=== PATIENT | female | born 1975 | race Caucasian/White ===

== ENCOUNTER 2023-09-16 15:10 | Outpatient (OUT) | payer BC, SELFPAY ==
--- NOTE | 2023-09-16 15:18 | MM_ITS ---
Patient Name: AMINTA STILL MR#: [id number] : 1975 Exam Date: 09/16/2023 Ordering Doctor: DR TAWNYA FLORES RADIOLOGY REPORT PROCEDURE: MM TOMOSYNTHESIS SCREENING BI COMPARISON: MG MAMM SCREEN 3D JUAN CAD, 11/29/2021. MG MAMM SCREEN 3D JUAN CAD, 06/08/2020. MG MAMM SCREEN JUAN W CAD, 07/17/2017. INDICATIONS: screening Calculator Name NCI Breast Cancer Risk Assessment Tool 5 Year Breast Cancer Risk 0.90% Lifetime Breast Cancer Risk 10.50% Personal Breast Cancer No Personal Ovarian Cancer No Treatments None Family Cancers Grandfather-paternal with colon cancer at age ~72. LOCATION: [facility] BREAST COMPOSITION: The breasts are extremely dense, which lowers the sensitivity of mammography. FINDINGS: DIAGNOSTIC CATEGORY 1--NEGATIVE. RIGHT BREAST: No significant suspicious finding. Resolution of previously seen cyst within upper outer quadrant. LEFT BREAST: No significant suspicious finding. No significant change has occurred. RECOMMENDATIONS: ROUTINE MAMMOGRAM AND CLINICAL EVALUATION IN 12 MONTHS. PLEASE NOTE: A NORMAL MAMMOGRAM DOES NOT EXCLUDE THE POSSIBILITY OF BREAST CANCER. A CLINICALLY SUSPICIOUS PALPABLE LUMP SHOULD BE BIOPSIED. Dictated by: Delfino Denton M.D. on 09/16/2023 at 16:31 Approved by: Delfino Denton M.D. on 09/16/2023 at 16:35
== END 2023-09-16 15:11 | disposition home or self-care (01) ==
LOC: MAMMO 15:12
PROVIDERS: PCP Internal Medicine; Visit Provider Internal Medicine
DX: Z12.31 Encounter for screening mammogram for malignant neoplasm of breast (principal); Z80.0 Family history of malignant neoplasm of digestive organs
CPT/HCPCS: 77063; 77067

== ENCOUNTER 2024-09-24 07:39 | Outpatient (OUT) | payer BC, SELFPAY ==
--- OUTSIDE RECORDS SUMMARY | 2024-09-24 07:41 | XMS_ITS | CCD ---
Author Organization [facility] Care Team Providers Care Stenotype Operator Name Role Phone Breanne Olivia Unavailable Unavailable Breanne Olviia Unavailable Unavailable NONE, XXXX Unavailable Unavailable HIESTAND, DR TAWNYA Gonzales Primary Care Unavailable HIESTAND, DR TAWNYA Gonzales Admitting Unavailable ZIEBER, DR DELFINO Fontana Consulting Unavailable HIESTAND, DR TAWNYA Gonzales Attending Unavailable HIESTAND, DR TAWNYA Gonzales Consulting Unavailable HIESTAND, DR TAWNYA Gonzales Primary Care Unavailable HIESTAND, DR TAWNYA Gonzales Admitting Unavailable VERNON, DR KIRA Navarro Consulting Unavailable HIESTAND, DR TAWNYA Gonzales Attending Unavailable HIESTAND, DR TAWNYA Gonzales Consulting Unavailable HIESTAND, DR TAWNYA Gonzales Primary Care Unavailable HIESTAND, DR TAWNYA Gonzales Admitting Unavailable ZIEBER, DR DELFINO Fontana Consulting Unavailable HIESTAND, DR TAWNYA Gonzales Attending Unavailable HIESTAND, DR TAWNYA Gonzales Consulting Unavailable [place] Tawnya MCKEON Primary Care Provider TAWNYA WESLEY Attending Unavailable MARK, TAWNYA Gonzales Referring Unavailable TAWNYA WESLEY Primary Care Unavailable TAWNYA WESLEY Attending Unavailable MARK, TAWNYA Gonzales Referring Unavailable TAWNYA WESLEY Primary Care Unavailable Allergies Allergy Classification Reported Allergen(s) Allergy Type Date of Onset Reaction(s) Facility (6 sources) Lisinopril; Translations: [LISINOPRIL] Drug Allergy 01-21-2022 [facility] Medications Current Medications Medication Drug Class(es) Dates Sig (Normalized) Sig (Original) losartan potassium 50 mg oral tablet (8 sources) Angiotensin 2 Receptor Melissa Start: 06-09-2024 take 1 tablet by mouth in the morning, then take 1 tablet by mouth at bedtime losartan (COZAAR) 50 mg tablet Indications: Primary hypertension Take 1 tablet (50 mg total) by mouth in the morning and 1 tablet (50 mg total) before bedtime. 06/09/2024 Active Start: 01-22-2023 End: 06-09-2024 take 1 tablet by mouth once daily in the morning losartan (COZAAR) 50 mg tablet Indications: Primary hypertension take 1 tablet by mouth once daily in the morning 90 tablet 3 02/26/2024 06/09/2024 Discontinued MULTIVITAMIN ORAL (5 sources) take 1 tablet by edith th in the morning MULTIVITAMIN ORAL Take 1 tablet by mouth in the morning. Active take 1 tablet by mouth in the mo rning MULTIVITAMIN ORAL Take 1 tablet by mouth in the morning. 0 Active Problems Active Problems Problem Classification Problem Date Documented Da te Episodic/Chronic Essential hypertension (10 sources) Essential hypertension; Translations: [Essential (primary) hypertension] Onset: 2021 06-09-2024 Chronic Nonmalignant breast conditions (5 sources) Solitary cyst of right breast; Translations: [Unspecified lump in unspecified breast] Onset: 12-11-2021 Episodic Other screening for suspected conditions (not mental disorders or infectious disease) (9 sources) Other abnormal and inconclusive findings on diagnostic imaging of breast; Translations: [Encounter for screening mammogram for malignant neoplasm of breast] Onset: 11-29-2021 Episodic Unclassified (1 source) BP's have been running high Onset: 06-09-2024 Unclassified (1 source) Annual Exam Onset: 02-10-2024 Past or Other Problems Problem Classification Problem Date Documented Da te Episodic/Chronic Mood disorders (5 sources) Mood disorders Onset: 01-22-2023 01-22-2023 Residual codes; unclassified (1 source) Family history of malignant neoplasm of digestive organs; Translations: [FAM HX MALIG NEOPLASM DIGESTIV ORGN] Onset: 12-04-2021 Episodic Results Test Name Value Interpretation Reference Range Facil ity US BREAST RIGHT LIMITEDon US BREAST RIGHT LIMITED Patient: AMINTA STILL Exam Date: 07/05/2022 : 1975 Gender:F Ordering : DR TAWNYA WESLEY Admission #: [id number] Family : Order #: [id number] CLICK HERE TO VIEW EXAM RADIOLOGY REPORT PROCEDURE: ULTRASOUND BREAST RIGHT LIMITED COMPARISON: US BREAST RIGHT LIMITED, 12/11/2021. MG MAMM SCREEN 3D JUAN CAD, 11/29/2021. MG MAMM SCREEN 3D JUAN CAD, 06/08/2020. MG MAMM SCREEN JUAN W CAD, 07/17/2017. INDICATIONS: Abnormal findings on diagnostic imaging of breast TECHNIQUE: Breast ultrasound was performed, with evaluation focusing only on specific areas of concern. FINDINGS: DIAGNOSTIC CATEGORY 2--BENIGN FINDING: RIGHT BREAST: Anechoic benign-appearing 1.4 cm cyst at 10 o'clock position, 3 C; smaller than previously seen. Additional benign-appearing cyst now present at the 10 o'clock position, 3 C, 0.5 cm in diameter at site of previously seen hypoechoic area. Annual screening mammography is recommended. RECOMMENDATIONS: ROUTINE MAMMOGRAM AND CLINICAL EVALUATION IN 12 MONTHS. PLEASE NOTE: A NORMAL ULTRASOUND EXAMINATION DOES NOT EXCLUDE THE POSSIBILITY OF BREAST CANCER. A CLINICALLY SUSPICIOUS PALPABLE LUMP SHOULD BE BIOPSIED. Dictated by: Delfino Denton M.D. on 07/05/2022 at 15:07 Approved by: Delfino Denton M.D. on 07/05/2022 at 16:29 Normal [facility] US BREAST RIGHT LIMITEDon US BREAST RIGHT LIMITED Patient: AMINTA STILL Exam Date: 12/11/2021 : 1975 Gender:F Ordering : DR TAWNYA WESLEY Admission #: [id number] Family : Order #: [id number] CLICK HERE TO VIEW EXAM RADIOLOGY REPORT PROCEDURE: ULTRASOUND BREAST RIGHT LIMITED COMPARISON: US BREAST RIGHT LIMITED, 07/25/2017. US BREAST RIGHT LIMITED, 01/27/2018. MG MAMM SCREEN 3D JUAN CAD, 11/29/2021. INDICATIONS: Mammographic mass of left breast TECHNIQUE: Breast ultrasound was performed, with evaluation focusing only on specific areas of concern. FINDINGS: DIAGNOSTIC CATEGORY 3--PROBABLY BENIGN FINDING. THE FOLLOWING FINDING(S) HAS A HIGH PROBABILITY OF A BENIGN ETIOLOGY: RIGHT BREAST: Predominantly anechoic thin-walled cyst except for a few tiny internal echoes at the 10 o'clock position, 3C, 2.1 x 2.0 x 1.7 cm. I suspect this represents the previously seen simple cyst at the 9 o'clock position which has increased slightly in size. Stable, adjacent 7 x 6 x 3 mm hypoechoic heterogeneous area, similar in appearance to the prior lesion labeled as 9 o'clock. This may represent a complex nodule or lymph node. Follow-up ultrasound in 6 months to document stability is recommended. Alternatively if the enlarging cyst is causing discomfort, this could be drained under ultrasound guidance. RECOMMENDATIONS: SHORT TERM FOLLOW-UP ULTRASOUND RIGHT BREAST IN 6 MONTHS. PLEASE NOTE: A NORMAL ULTRASOUND EXAMINATION DOES NOT EXCLUDE THE POSSIBILITY OF BREAST CANCER. A CLINICALLY SUSPICIOUS PALPABLE LUMP SHOULD BE BIOPSIED. Dictated by: Delfino Denton M.D. on 12/11/2021 at 12:33 Approved by: Delfino Denton M.D. on 12/11/2021 at 12:[address] [facility] MAMM SCREEN 3D JUAN CADon 11-29-2021 MG MAMM SCREEN 3D JUAN CAD Patient: AMINTA STILL Exam Date: 11/29/2021 : 1975 Gender:F Ordering : DR TAWNYA WESLEY Admission #: [id number] Family : Order #: [id number] CLICK HERE TO VIEW EXAM RADIOLOGY REPORT PROCEDURE: MAMMOGRAM SCREENING 3D BILATERAL CAD COMPARISON: MG MAMM JUAN DIAG W CAD, 07/25/2017. MG MAMM SCREEN 3D JUAN CAD, 06/08/2020. INDICATIONS: Screening mammography Calculator Name NCI Breast Cancer Risk Assessment Tool 5 Year Breast Cancer Risk 0.90% Lifetime Breast Cancer Risk 10.70% Personal Breast Cancer No Personal Ovarian Cancer No Treatments None Family Cancers Grandfather-paternal with colon cancer at age 72. LOCATION: [facility] BREAST COMPOSITION: Extremely dense, which lowers the sensitivity of mammography. FINDINGS: DIAGNOSTIC CATEGORY 0--INCOMPLETE: NEED ADDITIONAL IMAGING EVALUATION. Scattered benign-appearing calcifications are present. RIGHT BREAST: New well-circumscribed 2.1 x 2.5 x 2.3 cm nodule upper outer quadrant the chest wall. Possibly a cyst. Ultrasound follow-up is recommended for further evaluation. LEFT BREAST: No significant suspicious finding. RECOMMENDATIONS: ULTRASOUND: RIGHT BREAST PLEASE NOTE: A NORMAL MAMMOGRAM DOES NOT EXCLUDE THE POSSIBILITY OF BREAST CANCER. A CLINICALLY SUSPICIOUS PALPABLE LUMP SHOULD BE BIOPSIED. Dictated by: Kira Castillo MD on 11/29/2021 at 12:18 Approved by: Kira Castillo MD on 11/29/2021 at 12:21 Normal [facility] Vital Signs Date Time Vital Sign Value Performing Clinician Faci lity 06-09-2024 09:27-0500 Body mass index (BMI) [Ratio] 26.82 kg/m2 Tawnya [facility] 06-09-2024 09:27-0500 Body weight 81.19 kg Tawnya Wesley MD [facility] 06-09-2024 09:27-0500 Diastolic blood pressure 92 mm[Hg] Tawnya Wesley MD [facility] 06-09-2024 09:27-0500 Heart rate 85 /min Tawnya Wesley MD [facility] 06-09-2024 09:27-0500 Systolic blood pressure 149 mm[Hg] Tawnya Wesley MD [facility] 02-10-2024 13:22-0400 Body height 174 cm Tawnya Wesley MD [facility] 02-10-2024 13:22-0400 Body mass index (BMI) [Ratio] 27.12 kg/m2 Tawnya Wesley MD [facility] 02-10-2024 13:22-0400 Body weight 82.1 kg Tawnya Wesley MD [facility] 02-10-2024 13:22-0400 Diastolic blood pressure 91 mm[Hg] Tawnya Wesley MD [facility] 02-10-2024 13:22-0400 Heart rate 69 /min Tawnya Wesley MD [facility] 02-10-2024 13:22-0400 Systolic blood pressure 136 mm[Hg] Tawnya Wesley [facility] Encounters Encounter Date Encounter Type Care Provider Facility Start: 06-09-2024 End: 06-09-2024 Office outpatient visit 15 minutes Tawnya Wesley MD Work Phone: [facility] Comment on above: Primary hypertension (Primary Dx) Start: 06-09-2024 End: 06-09-2024 ambulatory [facility] Start: 02-25-2024 End: 02-26-2024 Refill Tawnya Wesley MD Work Phone: [facility] Comment on above: Primary hypertension Start: 02-10-2024 End: 02-10-2024 Patient encounter status Tawnya Wesley MD Work Phone: [facility] Work Phone: Start: 02-10-2024 End: 02-10-2024 Periodic preventive med est patient 40-64yrs Tawnya Wesley MD Work Phone: [facility] Comment on above: Routine general medi becky examination at a health care facility (Primary Dx); Essential hypertension Start: 02-10-2024 End: 02-10-2024 ambulatory [facility] Start: 02-10-2024 Encounter for genera l adult medical examination without abnormal findings [facility] Start: 01-27-2024 End: 01-28-2024 Refill Tawnya Wesley MD Work Phone: [facility] Comment on above: Primary hypertension Start: 05-15-2023 Telephone encounter Zuleima Aguirre CMA [facility] General Surgery Start: 07-05-2022 End: 07-06-[address] TAWNYA WESLEY Facility:[facility] Start: 12-11-2021 End: 12-12-[address] TAWNYA WESLEY Facility:[facility] Start: 11-29-2021 End: 11-30-[address] TAWNYA WESLEY Facility:[facility] Start: 06-24-2017 End: 06-25-2017 Ambulatory Breanne Robinson Olivia Facility:[facility] Procedures Date Procedure Procedure Detail Performing Clinician Start: 09-16-2023 Mammography Tawnya Meeks Work Phone: Start: 04-23-2023 Colonoscopy Zuleima donahue EXPANDER MACHINE OPERATOR Start: 01-22-2023 Adult depression scr eening assessment Zuleima Aguirre EXPANDER MACHINE OPERATOR Start: 11-29-2021 Mammography Zuleima donahue EXPANDER MACHINE OPERATOR Plan of Treatment Date Care Activity Detail Author Start: 04-23-2033 Screening for malign ant neoplasm of colon Colonoscopy [facility] Start: 11-29-2032 DTaP,Tdap and Td Vaccines (2 - Td or Tdap) DTaP,Tdap and Td Vaccines (2 - Td or Tdap) [facility] Start: 02-11-2025 End: 02-11-2025 Patient encounter procedure 02/11/2025 8:30 AM EDT Office Visit [facility] [address] [place] [phone] Tawnya Wesley MD [address] [place], [place] [id number] [facility] Start: 02-09-2025 Adult BMI Screening Adult BMI Screen ing [facility] Start: 02-09-2025 Tobacco Screening Tobacco Screening [facility] Start: 09-15-2024 Screening for malign ant neoplasm of breast Mammogram [facility] Start: 04-29-2024 Adult BMI Screening Adult BMI Screen ing [facility] Start: 04-29-2024 Tobacco Screening Tobacco Screening [facility] Start: 02-10-2024 End: 02-10-2024 Patient encounter procedure 02/10/2024 1:30 PM EDT Office Visit [facility] [address] [place] [phone] Tawnya Wesley MD [address] [place], [place] [id number] [facility] Start: 01-23-2024 Depression Screening Depression Scre ening [facility] Start: 01-11-2024 COVID-19 Vaccine ( season) COVID-19 Vaccine () [facility] Start: 01-11-2024 COVID-19 Vaccine () COVID-19 Vaccine () [facility] Start: 01-11-2024 Influenza vaccination Influenza Vacc ine [facility] Start: 01-10-2023 COVID-19 Vaccine ( season) COVID-19 Vaccine ( season) [facility] Start: 01-10-2023 Influenza vaccination Influenza Vacc ine [facility] Start: 11-29-2022 Screening for malign ant neoplasm of breast Mammogram [facility] Start: 1998 Screening for malign ant neoplasm of cervix Pap Smear [facility] Start: 1995 Adult BMI Follow Up Plan Adult BMI Follow Up Plan [facility] End: 02-09-2025 Basic metabolic 2000 panel - Serum or Plasma Basic Metabolic Panel Lab Routine Routine general medical examination at a health care facility 1 Occurrences starting 02/10/2024 until 02/09/2025 [facility] Work Phone: Comment on above: 1 Occurrences starti ng 02/10/2024 until 02/09/2025 Immunizations Immunization Date Immunization Notes Care Provider Fa [facility] 03-09-2024 Seasonal, trivalent, recombinant, injectable influenza vaccine, preservative free Tawnya Wesley MD Work Phone: [facility] 11-29-2022 tetanus toxoid, redu margo diphtheria toxoid, and acellular pertussis vaccine, adsorbed Tawnya Wesley MD Work Phone: [facility] 03-22-2022 Seasonal, quadrivale nt, recombinant, injectable influenza vaccine, preservative free Zuleima Venia [facility] 03-22-2022 influenza virus vaccine, unspecified formulation Zuleima Venia [facility] 02-14-2020 influenza virus vaccine, unspecified formulation Zuleima Venia [facility] 01-22-2019 influenza virus vaccine, unspecified formulation Zuleima Venia [facility] 02-16-2018 influenza virus vaccine, unspecified formulation Zuleima Venia [facility] Payers Date Payer Category Payer [employer] - PPO [id number] 2017 Unknown 1975 Unknown [id number] 1975 Unknown [id number] 1975 Unknown [id number] 1975 Unknown [id number] 1975 Unknown [id number] 1957 Unknown [id number] Social History Date Type Detail Facility Start: 05-02-2020 Tobacco smoking stat [facility] Never smoked tobacco [facility] Start: 05-02-2020 Tobacco use and exposure Smoke less tobacco non-user [facility] Start: 02-10-2024 End: 06-09-2024 Alcoholic beverage intake Current drinker of alcohol (finding) [facility] Start: 05-02-2020 End: 06-22-2020 History of Social function [facility] Start: 05-02-2020 End: 06-22-2020 Alcohol Use Disorder Identification Test - Consumption [AUDIT-C] [facility] How often to you hav e a drink containing alcohol? Never [facility] How many standard dr inks containing alcohol do you have on a typical day? [address] [facility] Adolescent depressio n screening assessment 0 [facility] Start: 02-11-2023 Alcohol Comment very rare [facility] Start: 1975 Sex assigned at Not on file [facility] Start: 12-15-2014 Sex Female (finding) [facility] Clinical Notes 05-15-2023 to 06-09-2024 Tawnya Wesley MD - 06/09/2024 9:45 AM ESTTelephone Encounter - Tamar Ramirez, [facility] [address] - 02/25/2024 9:05 AM EDTTelephone Encounter - Tamar Ramirez, [facility] [address] [address] - 02/25/2024 9:05 AM EDT Note Date & Type Note Facility 06-09-2024 History of Presen t illness Narrative Subjective Patient ID: Amitna Still is a 49 y.o. female. She was noting some minor atypical brief chest tightness at rest and that prompted her to monitor her blood pressure. She takes her blood pressure medication in the evening. She notes that her blood pressure seems fine in the morning but at the end of the dosing interval her readings creep up into the hypertensive range. No headache or dizziness or other neurological symptoms. Nothing has changed as far as life stress. She is able to exercise without chest pain and really that was a minor concern relative to her blood pressure. Denies urinary symptoms or leg swelling. The following portions of the patient's history were reviewed and updated as appropriate: allergies, current medications, past medical history, past social history, and problem list. Review of Systems Objective Physical Exam Constitutional: Comments: She looks well. Blood pressure measured here above target. Cardiovascular: Rate and Rhythm: Normal rate and regular rhythm. Heart sounds: No murmur heard. No gallop. Pulmonary: Effort: Pulmonary effort is normal. Breath sounds: Normal breath sounds. Musculoskeletal: Right lower leg: No edema. Left lower leg: No edema. Assessment/Plan She is going to increase her losartan daily dose and take it in a split dose morning and night and monitor her blood pressure. Further pending her response. Diagnoses and all orders for this visit: Primary hypertension - losartan (COZAAR) 50 mg tablet; Take 1 tablet (50 mg total) by mouth in the morning and 1 tablet (50 mg total) before bedtime. documented in this encounter [facility] 02-25-2024 Miscellaneous Notes Formattin g of this note might be different from the original. Refill request documented in this encounter [facility] 02-25-2024 Telephone encount er Note Refill request [facility] 02-10-2024 History of Presen t illness Narrative Subjective Patient ID: Aminta Still is a 49 y.o. female. Comes in for wellness.No change in her health or functional capacity since I last saw her. She takes her blood pressure medication regularly. Monitors her blood pressure and it has been at target. She has no specific concerns. 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 The following portions of the patient's history were reviewed and updated as appropriate: allergies, current medications, past family history, past medical history, past social history, past surgical history, and problem list. Review of Systems Constitutional: Negative for activity change and unexpected weight change. HENT: Negative for congestion, trouble swallowing and voice change. Eyes: Negative for visual disturbance. Respiratory: Negative for cough and shortness of breath. Cardiovascular: Negative for chest pain and leg swelling. Gastrointestinal: Negative for abdominal pain and blood in stool. Genitourinary: Negative for dysuria and hematuria. Musculoskeletal: Negative for arthralgias and myalgias. Skin: She had a mole removed from her leg by surgery. Neurological: Negative for dizziness, light-headedness and headaches. Objective Physical Exam Constitutional: Appearance: Normal appearance. Comments: Blood pressure borderline HENT: Right Ear: Tympanic membrane normal. Left Ear: Tympanic membrane normal. Mouth/Throat: Pharynx: Oropharynx is clear. Eyes: General: No scleral icterus. Pupils: Pupils are equal, round, and reactive to light. Neck: Vascular: No carotid bruit. Comments: No thyroid enlargement or neck mass Cardiovascular: Rate and Rhythm: Normal rate and regular rhythm. Heart sounds: No murmur heard. Pulmonary: Effort: Pulmonary effort is normal. Breath sounds: Normal breath sounds. Abdominal: General: There is no distension. Palpations: Abdomen is soft. Tenderness: There is no abdominal tenderness. Musculoskeletal: Right lower leg: No edema. Left lower leg: No edema. Neurological: General: No focal deficit present. Mental Status: She is alert. Assessment/Plan Health maintenance reviewed. Labs ordered. Gets mammogram elsewhere. Up-to-date on colon cancer screening until 2032. Routine follow-up annually for wellness. Diagnoses and all orders for this visit: Routine general medical examination at a health care facility - Basic Metabolic Panel; Future Essential hypertension documented in this encounter [facility] 01-27-2024 Miscellaneous Notes Formattin g of this note might be different from the original. Refill request documented in this encounter [facility] 01-27-2024 Telephone encount er Note Refill request [facility] 05-15-2023 Miscellaneous Notes Formattin g of this note might be different from the original. ----- Message from Leonides Albert MD sent at 05/15/2023 10:03 AM EST ----- Regarding: Pathology Please let patient know that biopsy showed dysplastic nevus (atypical mole), which is benign. I do recommend that she follows up with cable wirer for yearly skin check ups, as people with atypical moles are at higher risk of developing melanoma Thank you ----- Message ----- From: Interface - Lab Results/Orders In Sent: 05/09/2023 10:38 AM EST To: Leonides Albert MD Spoke with patient regarding pathology results. Patient verbally understood with no further questions. Informed patient of Dr. Albert's recommendations to follow up with a cable wirer. documented in this encounter [facility] 05-15-2023 Telephone encount er Note ----- Message from Leonides Albert MD sent at 05/15/2023 10:03 AM EST ----- Regarding: Pathology Please let patient know that biopsy showed dysplastic nevus (atypical mole), which is benign. I do recommend that she follows up with cable wirer for yearly skin check ups, as people with atypical moles are at higher risk of developing melanoma Thank you ----- Message ----- From: Interface - Lab Results/Orders In Sent: 05/09/2023 10:38 AM EST To: Leonides Albert MD [facility] 05-15-2023 Telephone encount er Note Spoke with patient regarding pathology results. Patient verbally understood with no further questions. Informed patient of Dr. Albert's recommendations to follow up with a cable wirer. [facility] Evaluation note Diagnosis Primary hypertension- Primary Unspecified essential hypertension [facility] Diagnosis Routine general medical examination at a health care facility- Primary Essential hypertension Unspecified essential hypertension [facility] Primary hypertension Unspecified essential hypertension [facility] filedocumented in [facility] filedocumented in this encounter [facility] filedocumented in this encounter [facility] filed[facility] this [facility] Summary Purpose Family History No Family History Records FoundNo Family History Records FoundNo Family History Records Found Advance Directives No Advanced Directives Records FoundNo Advanced Directives Records FoundNo Advanced Directives Records Found Additional Source Comments INFORMATION SOURCE (unrecogn ized section and content) DATE CREATED AUTHOR 10/31/2017 Onesimo [facility] DATE CREATED AUTHOR AUTHOR'S ORGANIZ ATION 07/12/2022 [facility] DATE CREATED AUTHOR AUTHOR'S ORGANIZ ATION 06/11/2024 [facility] Reason for Visit (unrecogniz ed section and content) Reason Comments BP's have been running high Chest heavin ess Reason Comments Annual Exam Wellness, 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 Reason Comments Med Refill Care Teams (unrecognized sec tion and content) Stenotype Operator Relationship Specialty Start Date End Date Tawnya Wesley MD [address] [place] [address], [address] [place] [address] PCP - General Pediatrics 04/28/20 Stenotype Operator Relationship Specialty Start Date End Date Tawnya Wesley MD [address] [place] [address], [address] [place], [place] [id number] PCP - General Pediatrics 04/28/20 Stenotype Operator Relationship Specialty Start Date End Date Tawnya Wesley MD [address] [place] [address], [address] [place] [address] PCP - General Pediatrics 04/28/20 FOR RECORDS PERTAINING TO PATIENTS WHO ARE OR HAVE BEEN ENROLLED IN A CHEMICAL DEPENDENCY/SUBSTANCEABUSE PROGRAM, SOME INFORMATION MAY BE OMITTED. This clinical summary was aggregated from multiple sources. Caution should be exercised in using it in the provision of clinical care. This summary normalizes information from multiple sources, and as a consequence, information in this document may materially change the coding, format and clinical context of patient data. In addition, data may be omitted in some cases. CLINICAL DECISIONS SHOULD BE BASED ON THE PRIMARY CLINICAL RECORDS. [employer] [facility]. provides no warranty or guarantee of the accuracy or completeness of information in this document.
--- NOTE | 2024-09-24 08:08 | MM_ITS ---
Patient Name: AMINTA STILL MR#: [id number] : 1975 Exam Date: 09/24/2024 Ordering Doctor: DR TAWNYA FLORES RADIOLOGY REPORT PROCEDURE: MM TOMOSYNTHESIS SCREENING BI COMPARISON: MM TOMOSYNTHESIS SCREENING BI, 09/16/2023. MG MAMM SCREEN 3D JUAN CAD, 11/29/2021. MG MAMM SCREEN JUAN W CAD, 07/17/2017. INDICATIONS: Screening Calculator Name NCI Breast Cancer Risk Assessment Tool 5 Year Breast Cancer Risk 1.00% Lifetime Breast Cancer Risk 10.30% Personal Breast Cancer No Personal Ovarian Cancer No Treatments None Family Cancers Grandfather-paternal with colon cancer at age ~72. LOCATION: [facility] BREAST COMPOSITION: There are scattered areas of fibroglandular density. FINDINGS: LEFT BREAST: No significant suspicious finding. RIGHT BREAST: No significant suspicious findings. Benign-appearing calcifications are present. DIAGNOSTIC CATEGORY 2--BENIGN FINDING: RECOMMENDATIONS: ROUTINE MAMMOGRAM AND CLINICAL EVALUATION IN 12 MONTHS. PLEASE NOTE: A NORMAL MAMMOGRAM DOES NOT EXCLUDE THE POSSIBILITY OF BREAST CANCER. A CLINICALLY SUSPICIOUS PALPABLE LUMP SHOULD BE BIOPSIED. Dictated by: Aureilano Penn MD on 09/24/2024 at 08:54 Approved by: Aureliano Penn MD on 09/24/2024 at 08:57
== END 2024-09-24 07:40 | disposition home or self-care (01) ==
LOC: MAMMO 07:39
PROVIDERS: PCP Internal Medicine; Visit Provider Internal Medicine
DX: Z12.31 Encounter for screening mammogram for malignant neoplasm of breast (principal); Z80.0 Family history of malignant neoplasm of digestive organs
CPT/HCPCS: 77063; 77067